=== PATIENT | female | born 1980 | race Caucasian/White ===

== ENCOUNTER 2021-01-12 17:54 | Emergency (ER) | payer OTHER ==
[~2021-01-12] VITALS: Ht 162.6 cm; Wt 65.8 kg
[2021-01-12 18:34] LABS: ABSOLUTE EOSINOPHILS 0.1 thou/uL (0.0-0.7); ABSOLUTE LYMPHOCYTES 1.4 thou/uL (0.8-5.3); ABSOLUTE MONOCYTES 0.3 thou/uL (0.0-1.2); ABSOLUTE NEUTROPHILS 2.2 thou/uL (1.6-8.1); BASOPHILS 0.8 %; EOSINOPHILS 2.6 %; HEMATOCRIT 39.7 % (37.0-47.0); HEMOGLOBIN 13.7 gm/dL (12.0-15.0); LYMPHOCYTES 35.9 %; MCH 31.1 pg (26.0-34.0); MCHC 34.5 g/dL (28.0-37.0); MCV 90.2 fL (80.0-100.0); MONOCYTES 6.9 %; MPV 7.6 fl. (7.2-11.1); NUCLEATED RBCS 0 /100WBC; PLATELET COUNT* 228 thou/uL (150-400); POLYS 53.8 %; RDW-CV 13.5 % (10.5-14.5)
[2021-01-12 18:42] LABS: CALCIUM 8.8 mg/dL (8.5-10.1); CREATININE 0.8 mg/dL (0.6-1.3); POTASSIUM 3.4 mmol/L (3.5-5.1)
[2021-01-12 18:55] LABS: ALBUMIN 3.8 g/dL (3.4-5.0); TOTAL BILIRUBIN 1.2 mg/dL (<0.1-1.0); TOTAL PROTEIN 7.3 g/dL (6.4-8.2)
[2021-01-12 19:16] VITALS: BP 130/84
--- NOTE | 2021-01-13 09:19 | EKG ---
[place] [address] ELECTROCARDIOGRAM REPORT Name: YOANTAYLERJEANNETTE Maroi Room: [facility]#: [id number] Admission: 01/12/21 Attend Phys: Discharge: 01/12/21 Date of : 80 Date of Service: 01/12/21 89 Report #: [id number] THIS REPORT FOR: //name// [facility] ED Test Date: 2021-01-12 Test Time: 18:01:41 Pat Name: DALJIT MILTON Department: Room: Gender: F [employer]: : 1980 Requested By: Jeff Telles Order Number: [id number] MD: Vimal Smith Measurements Intervals [place] Rate: 63 P: 0 MO: 166 QRS: 46 QRSD: 74 T: 11 QT: 419 QTc: 429 Interpretive Statements Sinus rhythm Consider left ventricular hypertrophy Nonspecific T abnormalities, inferior leads Artifact in lead(s) II,III,aVR,aVL,aVF,V1,V2,V3,V4,V5,V6 and baseline wander in lead(s) III No previous ECG available for comparison Electronically Signed On 01-13-2021 9:19:42 CDT by Vimal Smith [email or web address] <ELECTRONICALLY SIGNED> By: Vimal Smith MD, [facility] 01/13/21 0919 00 00 Vimal Smith MD, [facility] /EPI
== END 2021-01-12 19:16 | disposition home or self-care (01) ==
LOC: M.ERS 17:54
PROVIDERS: Emergency Medicine
DX: R00.2 Palpitations (principal); R07.89 Other chest pain